=== PATIENT | female | born 1975 | race Hispanic/Latino ===

== ENCOUNTER 2024-06-29 11:02 | Outpatient (CLI) | payer BC | END 2024-06-29 11:03 | disposition home or self-care (01) | LOC: CSHDTY/OP 11:02 | PROVIDERS: ATTEND Nurse Practitioner Family | DX: E66.01 Morbid (severe) obesity due to excess calories (principal) | CPT/HCPCS: 97802 ==

== ENCOUNTER 2024-07-27 10:04 | Outpatient (CLI) | payer BC | END 2024-07-27 10:05 | disposition home or self-care (01) | LOC: CSHDTY/OP 10:04 | PROVIDERS: ATTEND Nurse Practitioner Family | DX: E66.01 Morbid (severe) obesity due to excess calories (principal) | CPT/HCPCS: 97802 ==

== ENCOUNTER 2024-09-21 09:06 | Outpatient (CLI) | payer BC | END 2024-09-21 09:07 | disposition home or self-care (01) | LOC: CSHDTY/OP 09:06 | PROVIDERS: ATTEND Nurse Practitioner Family | DX: E66.01 Morbid (severe) obesity due to excess calories (principal) | CPT/HCPCS: 97802 ==

== ENCOUNTER 2024-10-26 10:07 | Outpatient (CLI) | payer BC | END 2024-10-26 10:08 | disposition home or self-care (01) | LOC: CSHDTY/OP 10:07 | PROVIDERS: ATTEND Nurse Practitioner Family | DX: E66.01 Morbid (severe) obesity due to excess calories (principal) | CPT/HCPCS: 97802 ==